=== PATIENT | female | born 1965 ===

== ENCOUNTER 2021-11-11 05:12 | Day surgery (SDC) | payer OTHER ==
[2021-11-11] MEDS ORDERED: NEXIUM 24HR20 M1 PO (07:54)
== END 2021-11-11 09:15 | disposition home or self-care (01) ==
LOC: AMB-ENDOS 05:12 → CIR.AMB 13:30
PROVIDERS: ATTEND Surgery
DX: K44.9 Diaphragmatic hernia without obstruction or gangrene (principal); R10.13 Epigastric pain; Z20.822 Contact with and (suspected) exposure to COVID-19; E66.9 Obesity, unspecified